=== PATIENT | female | born 1975 | race Caucasian/White ===

== ENCOUNTER 2021-01-16 08:36 | Outpatient (CLI) | payer OTHER | END 2021-01-16 08:39 | disposition home or self-care (01) | LOC: SONOGRAMA 08:36 | PROVIDERS: ATTEND Pathology Anatomic Pathology & Clinical Pathology | DX: E04.2 Nontoxic multinodular goiter (principal) ==

== ENCOUNTER 2023-09-18 10:15 | Inpatient (IN) | payer OTHER ==
[~2023-09-18] VITALS: Ht 162.6 cm; Wt 63.5 kg
[2023-09-18] MEDS ORDERED: OMEPRAZOLE20 M2 PO (11:43)
[2023-09-18] MEDS ORDERED: CLONAZEPAM0.5 M1 PO (11:44)
[2023-09-23] MEDS ORDERED: CEFAZOLIN SODIUM 1,000 MG VIAL IV ONE (18:45)
[2023-09-23] MEDS ORDERED: POVIDONE-IODINE 118 ML BOTT TOP ONE (18:45)
[2023-09-23] MEDS ORDERED: MEPERIDINE HCL/PF 50 MG/ML VIAL IM SCH (20:00)
[2023-09-23] MEDS ORDERED: PROMETHAZINE HCL 25 MG/ML AMPUL IM SCH (21:00)
[2023-09-23] MEDS ORDERED: ONDANSETRON HCL 2 MG/ML VIAL ONE (21:53)
[2023-09-23] MEDS ORDERED: PROMETHAZINE HCL 25 MG/ML AMPUL ONE (22:23)
[2023-09-23 23:28] LABS: HEMATOCRIT 31.3 % (36.0-45.00); MEAN CELL VOLUME 89.4 fL (80.00-100.00); MEAN CORPUSCULAR HGB CONC 33.6 g/dl (32.0-36.0); PLATELET COUNT 266 K/uL (150-450); RED CELL DISTRIBUTION WIDTH 13.2 % (11.5-14.5)
[2023-09-23 23:43] LABS: HEMOGLOBIN 10.5 g/dL (12.0-15.00)
[2023-09-24] MEDS ORDERED: PROMETHAZINE HCL 50 MG/ML AMPUL ONE (00:24)
[2023-09-24 06:49] LABS: HEMATOCRIT 30.2 % (36.0-45.00); HEMOGLOBIN 10.5 g/dL (12.0-15.00); MEAN CORPUSCULAR HEMOGLOBIN 30.3 pg (27.00-32.0); MEAN CORPUSCULAR HGB CONC 34.8 g/dl (32.0-36.0); PLATELET COUNT 255 K/uL (150-450); RED BLOOD COUNT 3.47 M/uL (4.00-6.00); RED CELL DISTRIBUTION WIDTH 13.2 % (11.5-14.5)
[2023-09-24] MEDS ORDERED: OxyCODONE HCL/APAP UD (PERCOCET) PO PRN (10:00)
[2023-09-24] MEDS ORDERED: CLONAZEPAM 0.5 MG TABLET PO PRN (15:00)
[2023-09-24] MEDS ORDERED: FAMOtidine 20 MG TABLET PO SCH (17:00)
[2023-09-25] MEDS ORDERED: ERYTHROMYCIN BASE 1 GM TUBE OP ONE (13:15)
[2023-09-25] MEDS ORDERED: CHLORHEXIDINE GLUCONATE 120 ML BOTTLE TOP ONE (13:15)
[2023-09-26] MEDS ORDERED: OxyCODONE HCL/APAP UD (PERCOCET) PO PRN (13:15)
== END 2023-09-26 15:35 | disposition home or self-care (01) | DRG 743 ==
LOC: SURG 10:15 → OB/GYN 09-23 13:42 → O/R 09-23 13:42 → OB/GYN 09-23 21:23
PROVIDERS: ADMIT Obstetrics & Gynecology Obstetrics; ATTEND Obstetrics & Gynecology Obstetrics
PROC: 0UT50ZZ Resection of Right Fallopian Tube, Open Approach (ICD-10-PCS; 2023-09-23)
PROC: 0UT20ZZ Resection of Bilateral Ovaries, Open Approach (ICD-10-PCS; 2023-09-23)
PROC: 0UT90ZZ Resection of Uterus, Open Approach (ICD-10-PCS; principal; 2023-09-23 14:00)
DX: D25.2 Subserosal leiomyoma of uterus (principal); N84.0 Polyp of corpus uteri; Z20.822 Contact with and (suspected) exposure to COVID-19